=== PATIENT | female | born 1990 | race Caucasian/White ===

== ENCOUNTER 2017-02-10 13:08 | Inpatient (IN) | payer OTHER ==
[2017-02-10] VITALS (7 sets, daily range): BP systolic 118–132; BP diastolic 7–81; PULSE 70–88; RESP 4–17; TEMP 96.8–98.1; O2SAT 99–100
[~2017-02-10 13:08] MED LIST: LACTATED RINGER'S 1000 ML INJ 1,000 ML IV ONE; NEOSTIGMINE 3 MG/3 ML SYR IV ONE; ONDANSETRON HCL 4 MG/2 ML VIAL IV PUSH ONE; PHENYLEPH/NS 1000 MCG/10 ML SYR IV ONE; PROPOFOL 200 MG/20 ML AMP IV ONE; SODIUM CHLOR 0.9% 250 ML INJ 250 ML IV ONE; ePHEDrine/NS 25 MG/5 ML SYR IV ONE
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
[2017-02-10 13:56] LABS: BASOPHIL # 0.1 TH/MM3 (0-0.2); EOSINOPHIL # 0.1 TH/MM3 (0-0.4); EOSINOPHIL % 1.6 % (0.0-4.0); HEMATOCRIT 40.4 % (35.0-46.0); HEMO FLAGS DIFF FINAL; LYMPH % 24.1 % (9.0-44.0); LYMPHOCYTE # 1.6 TH/MM3 (1.0-4.8); MEAN CELL VOLUME 91.3 FL (80.0-100.0); MEAN CORPUSCULAR HEMOGLOBIN 30.2 PG (27.0-34.0); MEAN CORPUSCULAR HGB CONC 33.1 % (32.0-36.0); MONO % 10.7 % (0.0-8.0); NEUT % 62.6 % (16.0-70.0); PLATELET COUNT 284 TH/MM3 (150-450); RED BLOOD COUNT 4.43 MIL/MM3 (4.00-5.30); RED CELL DISTRIBUTION WIDTH 13.2 % (11.6-17.2); WHITE BLOOD COUNT 6.4 TH/MM3 (4.0-11.0)
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
[2017-02-10 14:08] LABS: BICARBONATE 27.7 MEQ/L (21.0-32.0); POTASSIUM 4.2 MEQ/L (3.5-5.1)
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
[2017-02-10] MEDS ORDERED: MORPHINE SULFATE 8 MG/ML INJ IV PUSH ONE (14:45)
[2017-02-10] MEDS ORDERED: ONDANSETRON HCL 4 MG/2 ML VIAL IVP ONE (14:45)
[2017-02-10] MEDS ORDERED: TETANUS/DIPHTHERIA TOXOID ADULT 0.5 ML VIAL IM ONE (15:00)
[2017-02-10] MEDS ORDERED: ceFAZolin 2 GM PREMIX 50 ML IV ONE (15:00)
[2017-02-10] MEDS ORDERED: ceFAZolin INJ 1,000 MG VIAL ONE (16:02)
[2017-02-10] MEDS ORDERED: MORPHINE SULFATE 8 MG/ML INJ IV PUSH PRN (16:30)
[2017-02-10] MEDS ORDERED: ACETAMINOPHEN/HYDROcodone 325 MG/5 MG TAB PO PRN (16:30)
[2017-02-10] MEDS ORDERED: ONDANSETRON HCL 4 MG/2 ML VIAL IV PRN (16:30)
[2017-02-10] MEDS ORDERED: diphenhydrAMINE HCL 25 MG CAP PO PRN ×2 (16:30→18:00)
[2017-02-10] MEDS ORDERED: ACETAMINOPHEN 325 MG TAB PO PRN (16:30)
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
[2017-02-10] MEDS ORDERED: MISCELLANEOUS NURSING INFORMATION XX PRN (18:00)
[2017-02-10] MEDS ORDERED: ACETAMINOPHEN/HYDROcodone 325 MG/7.5 MG TAB PO PRN (18:00)
[2017-02-10] MEDS ORDERED: MISCELLANEOUS PHARMACY INFORMATION XX ONE (18:00)
[2017-02-10] MEDS ORDERED: MORPHINE SULFATE 4 MG/ML INJ IV PUSH PRN (18:00)
[2017-02-10] MEDS ORDERED: SODIUM CHLORIDE 0.9% FLUSH 5 ML FLUSH IVF PRN (18:00)
[2017-02-10] MEDS ORDERED: NALOXONE HCL 0.4 MG/ML AMP IV PRN (18:00)
[2017-02-10] MEDS ORDERED: Post-op Orders (for Pharmacy) MISC XX ONE (18:00)
[2017-02-10] MEDS ORDERED: ONDANSETRON HCL 4 MG/2 ML VIAL IVP PRN (18:00)
[2017-02-10] MEDS ORDERED: GENTAMICIN SULFATE 80 MG/2 ML VIAL ONE (18:01)
[2017-02-10] MEDS ORDERED: VANCOMYCIN HCL 1000 MG VIAL ONE (18:36)
[2017-02-10] MEDS ORDERED: DO NOT ADM ANY ANTICOAGULANT DRUGS PRN (19:35)
[2017-02-10] MEDS ORDERED: *MEPERIDINE 25 MG INJ VIAL PERIprocedural Use ONLY ONE (19:39)
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
[2017-02-10] MEDS ORDERED: MIDAZOLAM HCL 2 MG/2 ML VIAL ONE (19:50)
[2017-02-10] MEDS ORDERED: fentaNYL CITRATE 250 MCG/5 ML AMP ONE (19:50)
[2017-02-10] MEDS: DEXT 5%-NACL 0.45% 1000 ML INJ 1,000 ML IV SCH (20:00)
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
[2017-02-10] MEDS: ACETAMINOPHEN/HYDROcodone 325 MG/7.5 MG TAB PO PRN (20:56)
[2017-02-10] MEDS: DOCUSATE SODIUM 50 MG/SENNA 8.6 MG TAB PO SCH (20:57)
[2017-02-10] MEDS: SODIUM CHLORIDE 0.9% FLUSH 5 ML FLUSH IVF SCH (20:58)
[2017-02-11] VITALS (7 sets, daily range): BP systolic 87–106; BP diastolic 56–70; PULSE 75–92; RESP 17–18; TEMP 96.2–98; O2SAT 98–100
[2017-02-11] MEDS: SODIUM CHLOR 0.9% 1000 ML INJ 1,000 ML IV SCH ×2 (02:33→16:05)
[2017-02-11] MEDS: DEXT 5%-NACL 0.45% 1000 ML INJ 1,000 ML IV SCH ×3 (02:33→23:25)
[2017-02-11] MEDS: ACETAMINOPHEN/HYDROcodone 325 MG/7.5 MG TAB PO PRN ×4 (04:08→22:19)
--- NOTE | 2017-02-11 08:00 | PD.ORT.PN ---
Subjective Post Op Day #: 1 Subjective Remarks intermittent pain. otherwise doing well. Objective Vitals Vital Signs Date Time Temp Pulse Resp B/P Pulse Ox O2 Delivery O2 Flow Rate FiO2 02/11/17 04:00 96.2 75 17 101/57 100 02/10/17 23:24 98.1 75 16 119/81 100 02/10/17 20:44 96.8 86 17 118/66 100 02/10/17 20:25 80 20 133/78 100 Nasal Cannula 2 02/10/17 20:00 76 20 125/62 100 Nasal Cannula 2 02/10/17 19:45 87 20 130/60 100 Nasal Cannula 2 02/10/17 19:33 98.6 111 20 128/64 100 Nasal Cannula 2 02/10/17 17:45 85 26 105/57 95 02/10/17 17:30 83 23 102/60 97 02/10/17 17:12 88 02/10/17 17:12 97.7 88 16 110/65 98 02/10/17 16:10 97.7 89 16 126/77 99 02/10/17 15:02 16 02/10/17 15:00 97.8 86 16 128/77 99 Room Air 02/10/17 13:25 17 99 Room Air 02/10/17 13:21 89 18 100 Room Air 02/10/17 13:21 70 17 132/75 100 Room Air I/O 02/10/17 02/10/17 02/10/17 02/11/17 02/11/17 02/11/17 07:00 15:00 23:00 07:00 15:00 23:00 Intake Total 1650 ml 838 ml Output Total 25 ml Balance 1625 ml 838 ml Intake Oral 300 ml 240 ml IV Total 250 ml 598 ml Other 1100 ml Output Estimated Blood Loss 25 ml # Voids 1 3 # Bowel Movements 0 0 Result Diagram: 02/10/17 1345 02/10/17 1345 Other Results Laboratory Tests Test 02/10/17 13:45 Prothrombin Time 11.0 SEC (9.8-11.6) Prothromb Time International 1.0 RATIO Ratio Imaging Last 24 hours Impressions Foot X-Ray 02/10/17 1321 Signed Impressions: Service Date/Time: Friday, February 10, 2017 13:43 - CONCLUSION: Medial malleolus fracture. A foot fracture is not seen. Phi Arambula MD Ankle X-Ray 02/10/17 1321 Signed Impressions: Service Date/Time: Friday, February 10, 2017 13:36 - CONCLUSION: 1. Severely comminuted, displaced, open fracture of the medial malleolus. Kelvin Aly MD Objective Remarks in bed, nad dressing R ankle c/d/i neg homans nvi cap refill Assessment & Plan Ortho Post Op Day #: 1 Problem List: Assessment and Plan s/p I&D open R ankle fx, repair of PT tendon, ORIF R medial malleolus NWB RLE mnimal ROM of R ankle daily dressing changes - will change tomorrow abx PT f/up dr mello 1-2 weeks Geronimo Kemp Feb 11, 2017 08:00
[2017-02-11] MEDS: SODIUM CHLORIDE 0.9% FLUSH 5 ML FLUSH IVF SCH ×2 (09:00→20:33)
[2017-02-11] MEDS: DOCUSATE SODIUM 50 MG/SENNA 8.6 MG TAB PO SCH ×2 (09:57→20:33)
[2017-02-11] MEDS: MULTIVITAMINS/MINERALS THERAPEUTIC TAB PO SCH (09:57)
[2017-02-11] MEDS ORDERED: WALKER WHEELS/F1 MIS (14:02)
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
[2017-02-11] MEDS ORDERED: ENOXAPARIN SODIUM 30 MG/0.3 ML SYRINGE SQ SCH (18:00)
[2017-02-12 00:29] VITALS: BP 124/71; PULSE 81; RESP 17; TEMP 97.6; O2SAT 100
[2017-02-12] MEDS: SODIUM CHLOR 0.9% 1000 ML INJ 1,000 ML IV SCH (03:12)
[2017-02-12] MEDS: ACETAMINOPHEN/HYDROcodone 325 MG/7.5 MG TAB PO PRN ×2 (05:06→10:25)
[2017-02-12] MEDS ORDERED: HYDR-3288 PO (08:01)
[2017-02-12] MEDS ORDERED: CEPH-460 PO (08:01)
[2017-02-12 08:05] VITALS: BP 94/66; PULSE 87; RESP 20; TEMP 97.4; O2SAT 99
[2017-02-12] MEDS: MULTIVITAMINS/MINERALS THERAPEUTIC TAB PO SCH (08:08)
[2017-02-12] MEDS: DOCUSATE SODIUM 50 MG/SENNA 8.6 MG TAB PO SCH (08:08)
[2017-02-12] MEDS: SODIUM CHLORIDE 0.9% FLUSH 5 ML FLUSH IVF SCH (08:19)
--- NOTE | 2017-02-12 08:19 | PD.ORT.PN ---
Subjective Post Op Day #: 2 Subjective Remarks intermittent pain. otherwise doing well. denies cp and sob. Objective Vitals Vital Signs Date Time Temp Pulse Resp B/P Pulse Ox O2 Delivery O2 Flow Rate FiO2 02/12/17 08:05 97.4 87 20 94/66 99 02/12/17 06:06 18 02/12/17 00:29 97.6 81 17 124/71 100 02/12/17 00:10 Room Air 02/11/17 20:55 98 21 02/11/17 19:00 98.0 88 17 103/64 99 02/11/17 16:00 96.6 76 18 103/58 99 02/11/17 13:20 100 02/11/17 12:41 18 02/11/17 12:00 96.6 92 18 106/70 98 I/O 02/11/17 02/11/17 02/11/17 02/12/17 02/12/17 02/12/17 07:00 15:00 23:00 07:00 15:00 23:00 Intake Total 838 ml 600 ml 480 ml 480 ml Balance 838 ml 600 ml 480 ml 480 ml Intake Oral 240 ml 600 ml 480 ml 480 ml IV Total 598 ml # Voids 3 4 3 3 # Bowel Movements 0 0 0 0 Result Diagram: 02/10/17 1345 02/10/17 1345 Imaging Last 24 hours Impressions Foot X-Ray 02/10/17 1321 Signed Impressions: Service Date/Time: Friday, February 10, 2017 13:43 - CONCLUSION: Medial malleolus fracture. A foot fracture is not seen. Phi Arambula MD Ankle X-Ray 02/10/17 1321 Signed Impressions: Service Date/Time: Friday, February 10, 2017 13:36 - CONCLUSION: 1. Severely comminuted, displaced, open fracture of the medial malleolus. Kelivn Aly MD Objective Remarks in bed, nad dressing removed. laceration closed. no erythema or active drainage noted. neg homans nvi cap refill Assessment & Plan Ortho Post Op Day #: 2 Problem List: Assessment and Plan s/p I&D open R ankle fx, repair of PT tendon, ORIF R medial malleolus NWB RLE mnimal ROM of R ankle daily dressing changes - patient instructed on appropriate dressing changes and wound cleaning ortho stable and cleared for d/c transition to PO abx rx in chart f/up dr mello 1-2 weeks Geronimo Kemp Feb 12, 2017 08:19
[2017-02-12] MEDS: DEXT 5%-NACL 0.45% 1000 ML INJ 1,000 ML IV SCH (10:00)
[2017-02-12 10:06] VITALS: O2SAT 99
[2017-02-12 11:32] VITALS: BP 107/69; PULSE 90; RESP 16; TEMP 96.7; O2SAT 99
--- NOTE | 2017-02-12 12:03 | HHI.DCPOC ---
Discharge Care Plan Diagnosis: (1) Open fracture of medial malleolus Goals to Promote Your Health - Patient is to be non-weight bearing to the right lower extremity and minimal range of motion of the right ankle - Daily dressing changes - patient instructed on appropriate dressing changes and wound cleaning - Patient is to complete antibiotic regimen with Keflex 500mg four times daily x 7 days - Patient is to followup with Dr. Cruz in 2 weeks, call for an appt. - She is to followup with her PCP, Dr. Patel, in 1 week, call for an appt. Directions to Meet Your Goals Take your medications as prescribed Follow your dietary instruction Follow activity as directed Keep your appointments as scheduled Take your immunizations and boosters as scheduled If your symptoms worsen call your PCP, if no PCP go to Urgent Care Center or Emergency Room Smoking is Dangerous to Your Health. Avoid second hand smoke Call the 24-hour hour crisis hotline for domestic abuse at Joie Drummond Feb 12, 2017 12:03 Bishnu Rogers DO Feb 13, 2017 00:03
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
== END 2017-02-12 12:43 | disposition home or self-care (01) | DRG 494 ==
LOC: NEPC 13:08 → NEDA 15:58 → N06A 20:36
PROVIDERS: ADMIT Hospitalist; ATTEND Hospitalist
PROC: 0LQN0ZZ Repair Right Lower Leg Tendon, Open Approach (ICD-10-PCS; 2017-02-10)
PROC: 0QSG04Z Reposition Right Tibia with Internal Fixation Device, Open Approach (ICD-10-PCS; principal; 2017-02-10 18:00)
DX: S82.52 Displaced fracture of medial malleolus of left tibia (principal); S86.811A Strain of other muscle(s) and tendon(s) at lower leg level, right leg, initial encounter; Y92.488 Other paved roadways as the place of occurrence of the external cause; V23.4XXA Motorcycle driver injured in collision with car, pick-up truck or van in traffic accident, initial encounter; Y93.89 Activity, other specified; Y99.9 Unspecified external cause status
CPT/HCPCS: 73600; 73610; 73620; 76000; 80048; 85025; 85610; 85730; 90471; 90714; 94150; 96374; 96375; C1713; J0690; J1580; J1650; J2175; J2250; J2270; J2370; J2405; J2710; J3010; J3370; J7050; J7120

== ENCOUNTER → 2018-01-19 | Day surgery (SDC) | payer OTHER ==
[~2018-01-19] MED LIST changes: +CEPH-460 PO; +HYDR-3288 PO; +LACTATED RINGER'S 1000 ML INJ 0 ML ONE; -LACTATED RINGER'S 1000 ML INJ 1,000 ML IV ONE; -NEOSTIGMINE 3 MG/3 ML SYR IV ONE; -ONDANSETRON HCL 4 MG/2 ML VIAL IV PUSH ONE; -PHENYLEPH/NS 1000 MCG/10 ML SYR IV ONE; -PROPOFOL 200 MG/20 ML AMP IV ONE; -SODIUM CHLOR 0.9% 250 ML INJ 250 ML IV ONE; +WALKER WHEELS/F1 MIS; +ceFAZolin INJ 1,000 MG VIAL ONE; -ePHEDrine/NS 25 MG/5 ML SYR IV ONE
== END | disposition home or self-care (01) ==
LOC: ESDC 12:24
PROVIDERS: ATTEND Orthopaedic Surgery Sports Medicine
DX: T84.84XA Pain due to internal orthopedic prosthetic devices, implants and grafts, initial encounter (principal)
CPT/HCPCS: J0690; J7120

== ENCOUNTER → 2018-02-09 | Day surgery (SDC) | payer OTHER ==
[~2018-02-09] MED LIST changes: +ACETAMINOPHEN/HYDROcodone 325 MG/5 MG TAB ONE; +BUPIVACAINE HCL PF 0.5% 30 ML VIAL ONE; +BUPIVACAINE/EPINEPHRINE 0.5% PF 30 ML VIAL ONE; +KETOROLAC TROMETHAMINE 30 MG/ML (IVP) VIAL IV PUSH ONE; -LACTATED RINGER'S 1000 ML INJ 0 ML ONE; +LACTATED RINGER'S 1000 ML INJ 1,000 ML ONE; +MIDAZOLAM HCL 2 MG/2 ML VIAL ONE; +ONDANSETRON HCL 4 MG/2 ML VIAL IV PUSH ONE; +PROPOFOL 200 MG/20 ML AMP IV ONE
--- NOTE | 2018-02-09 16:55 | RADRPT ---
EXAM DATE: 02/09/2018 4:50 PM EDT AGE/SEX: 27 years / Female INDICATIONS: Right ankle hardware removal. CLINICAL DATA: This is the patient's initial encounter. Patient reports that signs and symptoms have been present for 1 day and indicates a pain score of Nonresponsive. MEDICAL/SURGICAL HISTORY: None. . Right ankle. COMPARISON: No prior exams available for comparison. FINDINGS: A single AP image of the ankle has been obtained from the OR. Surgical hardware is not seen. There ar e tiny metallic densities projecting over the distal tibia. There is soft tissue swelling seen medial ly. CONCLUSION: No hardware seen. There do appear to be tiny metallic densities projecting over the distal tibia. Electronically signed by: Phi Arambula MD 02/09/2018 4:54 PM EDT
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
== END | disposition home or self-care (01) ==
LOC: ESDC 13:12
PROVIDERS: ATTEND Orthopaedic Surgery Sports Medicine
DX: T84.84XA Pain due to internal orthopedic prosthetic devices, implants and grafts, initial encounter (principal)
CPT/HCPCS: 01480; 20680; 73600; 76000; J0690; J1885; J2405; J3010; J7120; J2250